=== PATIENT | female | born 1975 | race American Indian/Alaskan Native ===

== ENCOUNTER 2016-08-01 18:17 | Emergency (ER) | payer SELFPAY ==
[2016-08-01 18:50] LABS: Bilirubin,Urine NEG (Negative); Blood,Urine NEG (Negative); Ketones,Urine TR mg/dL (Negative); Leukocyte Esterase,Urine NEG (Negative); Mucus,Urine FEW /HPF; Nitrite,Urine NEG (Negative); Protein,Urine <15 mg/dL mg/dL (Negative)
[2016-08-01 19:15] LABS: Basophils % (Auto) 0.8 % (0.0-1.8); Eosinophils % (Auto) 3.1 % (0.0-4.3); Mean Corpuscular HGB Conc 29 % (30-34); Mean Corpuscular Volume 74 fl (79-97); Platelet Count 221 K/mm3 (140-440); Red Blood Count 3.67 M/mm3 (3.65-5.03); Red Cell Distribution Width 18.2 % (13.2-15.2); White Blood Count 6.1 K/mm3 (4.5-11.0)
[2016-08-01 19:16] LABS: Hematocrit 27.3 % (30.3-42.9); Mean Corpuscular Hemoglobin 22 pg (28-32)
[2016-08-01 19:28] LABS: Anion Gap 18 mmol/L; BUN/Creatinine Ratio 11.42; Blood Urea Nitrogen 8 mg/dL (7-17); Calcium 9.1 mg/dL (8.4-10.2); Carbon Dioxide 27 mmol/L (22-30); Chloride 100.1 mmol/L (98-107); Glucose 96 mg/dL (65-100); Potassium 4.2 mmol/L (3.6-5.0); Sodium 141 mmol/L (137-145)
--- NOTE | 2016-08-02 01:14 | Emergency Department Report ---
ED General Adult HPI - General Chief complaint: Weakness Stated complaint: LAB WORK Time Seen by Provider: 08/02/16 00:55 Source: patient Mode of arrival: Ambulatory Limitations: No Limitations - History of Present Illness Initial comments: 41-year-old female the past medical history HIV presents to the hospital with anemia and rash 2 years and neck. Patient was sent from [facility] after they obtained blood work today and hemoglobin was 7.0. Patient has a history of iron deficiency anemia and takes one iron tablet daily. She denies shortness of breath, lightheadedness, syncope, melena, or hematochezia. Patient also has a rash to bilateral ears and neck times one week. Similar rash in April when she presented here that cleared up with the ED treatment. No reports of fever. CD4 count greater than 200 and viral load undetectable as per patient. Severity scale (0 -10): 3 - Related Data Home Medications Medication Instructions Recorded Confirmed Last Taken Emtricitab/Rilpivirine/Tenofov 1 each PO DAILY 06/01/15 06/01/15 06/01/15 [Complera Tablet] Previous Rx's Medication Instructions Recorded Last Taken Type Ondansetron [Zofran Odt] 4 mg PO Q8HR PRN #10 tab.rapdis 03/14/16 Unknown Rx Cephalexin [Keflex] 500 mg PO Q12HR #14 cap 08/02/16 Unknown Rx Docusate Sodium [Colace] 100 mg PO BID PRN #20 capsule 08/02/16 Unknown Rx Ferrous Sulfate [Feosol 325 MG tab] 325 mg PO TID #60 tablet 08/02/16 Unknown Rx Hydrocortisone 1% [Hydrocortisone 1 applicatio TP TID #1 tube 08/02/16 Unknown Rx 1% CREAM] Loratadine [Claritin] 10 mg PO DAILY #30 tablet 08/02/16 Unknown Rx Allergies Allergy/AdvReac Type Severity Reaction Status Date / Time No Known Allergies Allergy Verified 03/14/16 17:31 ED Review of Systems ROS: Stated complaint: LAB WORK Other details as noted in HPI Comment: All other systems reviewed and negative Other: Constitutional: No fevers chills Eyes: No eye pain visual changes ENT: Ear rash Neck: Denies pain Respiratory: Denies cough wheezing shortness of breath Cardiovascular: Denies chest pain, palpitations, syncope GI: Denies abdominal pain, nausea, vomiting, diarrhea : Denies dysuria Musculoskeletal: Denies back pain, joint swelling Skin: as pr hpi Neurologic: Denies headache, numbness, weakness Psychiatric: Denies suicidal ideation, hallucinations ED Past Medical Hx - Past Medical History Previous Medical History?: Yes Hx HIV: Yes Additional medical history: Skin rash on ears - Surgical History Past Surgical History?: Yes Additional Surgical History: Exp lap - Social History Smoking Status: Current Every Day Smoker Substance Use Type: Prescribed - Medications Home Medications: Home Medications Medication Instructions Recorded Confirmed Last Taken Type Emtricitab/Rilpivirine/Tenofov 1 each PO DAILY 06/01/15 06/01/15 06/01/15 History [Complera Tablet] Ondansetron [Zofran Odt] 4 mg PO Q8HR PRN #10 tab.rapdis 03/14/16 Unknown Rx Cephalexin [Keflex] 500 mg PO Q12HR #14 cap 08/02/16 Unknown Rx Docusate Sodium [Colace] 100 mg PO BID PRN #20 capsule 08/02/16 Unknown Rx Ferrous Sulfate [Feosol 325 MG tab] 325 mg PO TID #60 tablet 08/02/16 Unknown Rx Hydrocortisone 1% [Hydrocortisone 1 applicatio TP TID #1 tube 08/02/16 Unknown Rx 1% CREAM] Loratadine [Claritin] 10 mg PO DAILY #30 tablet 08/02/16 Unknown Rx ED Physical Exam - General Limitations: No Limitations - Other Other exam information: General: No limitations, patient is alert in no acute distress Head exam: Atraumatic, normocephalic Eyes exam: Normal appearance, pupils equal reactive to light, extraocular movements intact ENT: Moist mucous membrane, normal oropharynx Neck exam: Normal inspection, full range of motion, no meningismus nontender Respiratory exam: Clear to auscultation bilateral, no wheezes, rales, crackles Cardiovascular: Normal rate and rhythm, normal heart sounds Abdomen: Soft, nondistended, and nontender, with normal bowel sounds, no rebound, or guarding Extremity: Full range of motion normal inspection no deformity Back: Normal Inspection, full range of motion, no tenderness Neurologic: Alert, oriented x3, cranial nerves intact, no motor or sensory deficit Psychiatric: normal affect, normal mood Skin: Papular scaly erythematous rash to neck and bilateral years. Mild drainage from ear papules. Tender to palpation. ED Course Vital Signs 08/01/16 08/02/16 08/02/16 18:25 00:40 00:46 Temperature 98.5 F 98.4 F Pulse Rate 84 61 Respiratory 20 18 19 Rate Blood Pressure 116/72 Blood Pressure 114/71 [Left] O2 Sat by Pulse 100 100 100 Oximetry 08/02/16 08/02/16 08/02/16 00:49 00:50 00:55 Temperature 98.4 F Pulse Rate 65 60 Respiratory 15 19 14 Rate Blood Pressure 115/80 Blood Pressure 115/71 [Left] O2 Sat by Pulse 100 100 100 Oximetry 08/02/16 01:00 Temperature Pulse Rate 60 Respiratory 12 Rate Blood Pressure 117/71 Blood Pressure [Left] O2 Sat by Pulse 100 Oximetry - Reevaluation(s) Reevaluation #1: 08/02/16 01:14 Patient stable in the ED ED Medical Decision Making - Lab Data Result diagrams: 08/01/16 18:49 08/01/16 18:49 Lab Results 08/01/16 08/01/16 08/01/16 Range/Units 18:36 18:49 18:49 WBC 6.1 (4.5-11.0) K/mm3 RBC 3.67 (3.65-5.03) M/mm3 Hgb 8.0 L (10.1-14.3) gm/dl Hct 27.3 L (30.3-42.9) % MCV 74 L (79-97) fl MCH 22 L (28-32) pg MCHC 29 L (30-34) % RDW 18.2 H (13.2-15.2) % Plt Count 221 (140-440) K/mm3 Lymph % (Auto) 43.7 H (13.4-35.0) % Mills % (Auto) 8.1 H (0.0-7.3) % Eos % (Auto) 3.1 (0.0-4.3) % Baso % (Auto) 0.8 (0.0-1.8) % Lymph # 2.7 (1.2-5.4) K/mm3 Mills # 0.5 (0.0-0.8) K/mm3 Eos # 0.2 (0.0-0.4) K/mm3 Baso # 0.0 (0.0-0.1) K/mm3 Seg Neutrophils % 44.3 (40.0-70.0) % Seg Neutrophils # 2.7 (1.8-7.7) K/mm3 Sodium (137-145) mmol/L Potassium (3.6-5.0) mmol/L Chloride (98-107) mmol/L Carbon Dioxide (22-30) mmol/L Anion Gap mmol/L BUN (7-17) mg/dL Creatinine (0.7-1.2) mg/dL Estimated GFR ml/min BUN/Creatinine Ratio % Glucose (65-100) mg/dL Calcium (8.4-10.2) mg/dL Urine Color Yellow (Yellow) Urine Turbidity Clear (Clear) Urine pH 5.0 (5.0-7.0) Ur Specific [place] 1.021 (1.003-1.030) Urine Protein <15 mg/dl (Negative) mg/dL Urine Glucose (UA) Neg (Negative) mg/dL Urine Ketones Tr (Negative) mg/dL Urine Blood Neg (Negative) Urine Nitrite Neg (Negative) Urine Bilirubin Neg (Negative) Urine Urobilinogen 2.0 (<2.0) mg/dL Ur Leukocyte Esterase Neg (Negative) Urine WBC (Auto) 1.0 (0.0-6.0) /HPF Urine RBC (Auto) 1.0 (0.0-6.0) /HPF U Epithel Cells (Auto) 4.0 (0-13.0) /HPF Urine Mucus Few /HPF Blood Type O POSITIVE Antibody Screen Negative 08/01/16 Range/Units 18:49 WBC (4.5-11.0) K/mm3 RBC (3.65-5.03) M/mm3 Hgb (10.1-14.3) gm/dl Hct (30.3-42.9) % MCV (79-97) fl MCH (28-32) pg MCHC (30-34) % RDW (13.2-15.2) % Plt Count (140-440) K/mm3 Lymph % (Auto) (13.4-35.0) % Mills % (Auto) (0.0-7.3) % Eos % (Auto) (0.0-4.3) % Baso % (Auto) (0.0-1.8) % Lymph # (1.2-5.4) K/mm3 Mills # (0.0-0.8) K/mm3 Eos # (0.0-0.4) K/mm3 Baso # (0.0-0.1) K/mm3 Seg Neutrophils % (40.0-70.0) % Seg Neutrophils # (1.8-7.7) K/mm3 Sodium 141 (137-145) mmol/L Potassium 4.2 (3.6-5.0) mmol/L Chloride 100.1 (98-107) mmol/L Carbon Dioxide 27 (22-30) mmol/L Anion Gap 18 mmol/L BUN 8 (7-17) mg/dL Creatinine 0.7 (0.7-1.2) mg/dL Estimated GFR > 60 ml/min BUN/Creatinine Ratio 11.42 % Glucose 96 (65-100) mg/dL Calcium 9.1 (8.4-10.2) mg/dL Urine Color (Yellow) Urine Turbidity (Clear) Urine pH (5.0-7.0) Ur Specific [place] (1.003-1.030) Urine Protein (Negative) mg/dL Urine Glucose (UA) (Negative) mg/dL Urine Ketones (Negative) mg/dL Urine Blood (Negative) Urine Nitrite (Negative) Urine Bilirubin (Negative) Urine Urobilinogen (<2.0) mg/dL Ur Leukocyte Esterase (Negative) Urine WBC (Auto) (0.0-6.0) /HPF Urine RBC (Auto) (0.0-6.0) /HPF U Epithel Cells (Auto) (0-13.0) /HPF Urine Mucus /HPF Blood Type Antibody Screen - Medical Decision Making Patient's hemoglobin is active bleeding and history iron deficiency anemia. Patient has microcytic anemia at this time. We will increase his current iron dose and refer to hematology. No significant sx at this time. In April patient was treated with Keflex, hydrocortisone cream and Claritin. We'll repeat this regimen since improved to the dermatitis previously. Dermatology referral will be provided - Differential Diagnosis iron deficiency anemia, GI bleed, dermatitis, fungal infection, cellulitis Critical Care Time: No Critical care attestation.: If time is entered above; I have spent that time in minutes in the direct care of this critically ill patient, excluding procedure time. ED Disposition Clinical Impression: Iron deficiency anemia, Dermatitis, HIV (human immunodeficiency virus infection ) Disposition: DISCHARGED TO HOME OR SELFCARE Is pt being admited?: No Does the pt Need Aspirin: No Condition: Stable Instructions: Iron Deficiency Anemia (ED), Acute Rash (ED) Additional Instructions: I have increased your iron tablets to 3 times a day. This may cause constipation. Take stool softeners and [id number] laxities as needed. You will need very close monitoring of your hemoglobin. If yourr hemoglobin continues to drop you will need a blood transfusion. Return if symptoms worsen as indicated by discharge instructions. Follow-up with your and toe puncher provided. Prescriptions: Cephalexin [Keflex] 500 mg PO Q12HR #14 cap Docusate Sodium [Colace] 100 mg PO BID PRN #20 capsule PRN Reason: Constipation Ferrous Sulfate [Feosol 325 MG tab] 325 mg PO TID #60 tablet Hydrocortisone 1% [Hydrocortisone 1% CREAM] 1 applicatio TP TID #1 tube Loratadine [Claritin] 10 mg PO DAILY #30 tablet Referrals: Reggie Vaz MD [Other] - 3-5 Days (Research Quality Assurance Specialist) ALIYAH MIRAMONTES MD [Staff Physician] - 3-5 Days (Color Paste Mixing Supervisor) Time of Disposition: 01:20
[2016-08-02 01:39] VITALS: BP 108/66
== END 2016-08-02 01:35 | disposition home or self-care (01) ==
LOC: ED 18:17
DX: D50.9 Iron deficiency anemia, unspecified (principal); L30.9 Dermatitis, unspecified; B36.9 Superficial mycosis, unspecified; F17.200 Nicotine dependence, unspecified, uncomplicated; H60.10 Cellulitis of external ear, unspecified ear
CPT/HCPCS: 36415; 80048; 81001; 85025; 86850; 86900; 86901

== ENCOUNTER 2020-08-29 18:56 | Emergency (ER) | payer SELFPAY ==
[2020-08-29 19:44] VITALS: BP 96/61
--- NOTE | 2020-08-29 20:18 | Emergency Department Report ---
ED ENT HPI - General Chief complaint: Earache Stated complaint: LT EAR PAIN/DRAINAGE Source: patient Mode of arrival: Ambulatory Limitations: No Limitations - History of Present Illness Initial comments: 45-year-old -[place]og[place] female presents to the emergency room stating that her left outer ear and ear has been draining for a week. States that his skin warm copious amount of discharge. Denies any foreign object placed in the ear. Denies any trauma to the ear. Patient has a history of of eczema and. She states that wearing the masks loops has irritated her ear in the back of her ear. MD complaint: ear pain Onset/Timin -: days(s) - Related Data Home Medications Medication Instructions Recorded Confirmed Last Taken Emtricita/Rilpivirine/Tenof Df 1 each PO DAILY 06/01/15 06/01/15 06/01/15 [Complera Tablet] Previous Rx's Medication Instructions Recorded Last Taken Type Ondansetron [Zofran Odt] 4 mg PO Q8HR PRN #10 tab.rapdis 03/14/16 Unknown Rx Docusate Sodium [Colace] 100 mg PO BID PRN #20 capsule 08/02/16 Unknown Rx Ferrous Sulfate [Feosol 325 MG tab] 325 mg PO TID #60 tablet 08/02/16 Unknown Rx Hydrocortisone 1% [Hydrocortisone 1 applicatio TP TID #1 tube 08/02/16 Unknown Rx 1% CREAM] Loratadine (Nf) [Claritin (Nf)] 10 mg PO DAILY #30 tablet 08/02/16 Unknown Rx cephALEXin [Keflex] 500 mg PO Q12HR #14 cap 08/02/16 Unknown Rx Clindamycin [Clindamycin CAP] 300 mg PO Q8H 7 Days #21 cap 08/29/20 Unknown Rx Triamcinolone Acetonide 1 applicatio TP BID #60 gram 08/29/20 Unknown Rx [Triamcinolone Acetonide Oint 0.5%] Allergies Allergy/AdvReac Type Severity Reaction Status Date / Time No Known Allergies Allergy Verified 03/14/16 17:31 ED Dental HPI - General Chief complaint: Earache Stated complaint: LT EAR PAIN/DRAINAGE Source: patient Mode of arrival: Ambulatory Limitations: No Limitations - Related Data Home Medications Medication Instructions Recorded Confirmed Last Taken Emtricita/Rilpivirine/Tenof Df 1 each PO DAILY 06/01/15 06/01/15 06/01/15 [Complera Tablet] Previous Rx's Medication Instructions Recorded Last Taken Type Ondansetron [Zofran Odt] 4 mg PO Q8HR PRN #10 tab.rapdis 03/14/16 Unknown Rx Docusate Sodium [Colace] 100 mg PO BID PRN #20 capsule 08/02/16 Unknown Rx Ferrous Sulfate [Feosol 325 MG tab] 325 mg PO TID #60 tablet 08/02/16 Unknown Rx Hydrocortisone 1% [Hydrocortisone 1 applicatio TP TID #1 tube 08/02/16 Unknown Rx 1% CREAM] Loratadine (Nf) [Claritin (Nf)] 10 mg PO DAILY #30 tablet 08/02/16 Unknown Rx cephALEXin [Keflex] 500 mg PO Q12HR #14 cap 08/02/16 Unknown Rx Clindamycin [Clindamycin CAP] 300 mg PO Q8H 7 Days #21 cap 08/29/20 Unknown Rx Triamcinolone Acetonide 1 applicatio TP BID #60 gram 08/29/20 Unknown Rx [Triamcinolone Acetonide Oint 0.5%] Allergies Allergy/AdvReac Type Severity Reaction Status Date / Time No Known Allergies Allergy Verified 03/14/16 17:31 ED Review of Systems ROS: Stated complaint: LT EAR PAIN/DRAINAGE Other details as noted in HPI Comment: All other systems reviewed and negative ED Past Medical Hx - Past Medical History Previous Medical History?: Yes Hx HIV: Yes Additional medical history: Skin rash on ears - Surgical History Past Surgical History?: Yes Additional Surgical History: Exp lap - Social History Smoking Status: Current Every Day Smoker Substance Use Type: None - Medications Home Medications: Home Medications Medication Instructions Recorded Confirmed Last Taken Type Emtricita/Rilpivirine/Tenof Df 1 each PO DAILY 06/01/15 06/01/15 06/01/15 History [Complera Tablet] Ondansetron [Zofran Odt] 4 mg PO Q8HR PRN #10 tab.rapdis 03/14/16 Unknown Rx Docusate Sodium [Colace] 100 mg PO BID PRN #20 capsule 08/02/16 Unknown Rx Ferrous Sulfate [Feosol 325 MG tab] 325 mg PO TID #60 tablet 08/02/16 Unknown Rx Hydrocortisone 1% [Hydrocortisone 1 applicatio TP TID #1 tube 08/02/16 Unknown Rx 1% CREAM] Loratadine (Nf) [Claritin (Nf)] 10 mg PO DAILY #30 tablet 08/02/16 Unknown Rx cephALEXin [Keflex] 500 mg PO Q12HR #14 cap 08/02/16 Unknown Rx Clindamycin [Clindamycin CAP] 300 mg PO Q8H 7 Days #21 cap 08/29/20 Unknown Rx Triamcinolone Acetonide 1 applicatio TP BID #60 gram 08/29/20 Unknown Rx [Triamcinolone Acetonide Oint 0.5%] ED Physical Exam - General Limitations: No Limitations General appearance: alert, in no apparent distress - Head Head exam: Present: atraumatic, normocephalic - Eye Eye exam: Present: normal appearance - ENT ENT exam: Present: mucous membranes moist, TM's normal bilaterally. Absent: normal external ear exam (Pea swollen drainage tenderness) - Neck Neck exam: Present: normal inspection, full ROM - Respiratory Respiratory exam: Absent: accessory muscle use - Cardiovascular Cardiovascular Exam: Present: regular rate - Neurological Exam Neurological exam: Present: alert, oriented X3, normal gait - Psychiatric Psychiatric exam: Present: normal affect, normal mood ED Course Vital Signs 08/29/20 19:37 Temperature 98.7 F Pulse Rate 76 Respiratory 18 Rate Blood Pressure 96/61 O2 Sat by Pulse 99 Oximetry ED Medical Decision Making - Medical Decision Making 45-year-old -[place]og[place] female presents to the emergency room stating that her left outer ear and ear has been draining for a week. States that his skin warm copious amount of discharge. Denies any foreign object placed in the ear. Denies any trauma to the ear. Patient has a history of of eczema and. She states that wearing the masks loops has irritated her ear in the back of her ear. Patient will be placed on clindamycin and triamcinolone cream. Discussed with patient to follow-up with her primary care provider. Critical care attestation.: If time is entered above; I have spent that time in minutes in the direct care of this critically ill patient, excluding procedure time. ED Disposition Clinical Impression: Cellulitis of left external ear, Contact dermatitis and eczema Disposition: - TO HOME OR SELFCARE Is pt being admited?: No Does the pt Need Aspirin: No Condition: Stable Instructions: Cellulitis, Adult, [id number], Contact Dermatitis, [id number] Additional Instructions: Keep wound clean and dry. Apply thin layer of ointment twice a day. Follow-up with your primary care provider. Sure to complete your antibiotics. Prescriptions: Clindamycin [Clindamycin CAP] 300 mg PO Q8H 7 Days #21 cap Triamcinolone Acetonide [Triamcinolone Acetonide Oint 0.5%] 1 applicatio TP BID #60 gram Referrals: [facility] [Provider Group] - 3-5 Days
== END 2020-08-29 21:08 | disposition home or self-care (01) ==
LOC: ED 18:56
DX: L25.9 Unspecified contact dermatitis, unspecified cause (principal); H60.12 Cellulitis of left external ear; F17.200 Nicotine dependence, unspecified, uncomplicated; Z21 Asymptomatic human immunodeficiency virus [HIV] infection status; Z79.899 Other long term (current) drug therapy; Z98.890 Other specified postprocedural states
CPT/HCPCS: 99282

== ENCOUNTER 2020-09-04 08:12 | Outpatient (CLI) | payer OTHER ==
--- NOTE | 2020-09-04 09:05 | XRay Report ---
LEFT KNEE 2 VIEWS INDICATION / CLINICAL INFORMATION: LEFT KNEE PAIN COMPARISON: None available. FINDINGS: BONES / JOINT(S): No acute fracture or subluxation. Mild DJD greatest at the patellofemoral joint. SOFT TISSUES: Vascular calcification. ADDITIONAL FINDINGS: None. Signer Name: Naga Taylor MD Signed: 09/04/2020 9:01 AM Workstation Name: [employer]
== END 2020-09-04 08:13 | disposition home or self-care (01) ==
LOC: XRAY 08:12
PROVIDERS: ATTEND Internal Medicine
DX: M17.12 Unilateral primary osteoarthritis, left knee (principal); I10 Essential (primary) hypertension; F32.9 Major depressive disorder, single episode, unspecified; N83.209 Unspecified ovarian cyst, unspecified side

== ENCOUNTER 2020-10-12 14:05 | Emergency (ER) | payer SELFPAY ==
[2020-10-12 15:38] VITALS: BP 101/57
--- NOTE | 2020-10-12 16:27 | Event Note ---
I evaluated Ms. Lowry. She has a history of HIV not compliant with ART for over 1 year. She has a disseminated rash on exam. She has a vesicular rash head to toe. Patient appears nontoxic. Differential diagnosis includes CMV versus VZV. I agree with recommendations of acyclovir. Also recommended restarting Complera treatment. Patient referred to infectious disease doctor.
--- NOTE | 2020-10-12 16:28 | Emergency Department Report ---
ED Rash HPI - HPI Chief Complaint: Skin Rash Stated Complaint: RASH ON BODY/SOB Rash Symptoms: Yes Itching, No Facial Swelling, No Tongue/Oral Swelling, No Breathing Difficulties, No Choking Sensation, No Wheezing/Dyspnea, No Peeling, No Blistering, No Fever, No Lightheaded, No Malaise, No Myalgias Severity: moderate Other History: 89-[id number]-pfb-year-old compromised -[place] female presents with a generalized rash that is pruritic in nature. Patient states that the rash has worsened today. She states it itches and uncomfortable. She denies any true pain. States she has not been on her HIV medications for over a year. Patient denies any fever chills no nausea no vomiting. ED Review of Systems ROS: Stated complaint: RASH ON BODY/SOB Other details as noted in HPI Comment: All other systems reviewed and negative ED Past Medical Hx - Past Medical History Previous Medical History?: Yes Hx HIV: Yes Additional medical history: Skin rash on ears - Surgical History Additional Surgical History: Exp lap - Social History Smoking Status: Current Every Day Smoker Substance Use Type: None - Medications Home Medications: Home Medications Medication Instructions Recorded Confirmed Last Taken Type Emtricita/Rilpivirine/Tenof Df 1 each PO DAILY 06/01/15 06/01/15 06/01/15 Hi story [Complera Tablet] Ondansetron [Zofran Odt] 4 mg PO Q8HR PRN #10 tab.rapdis 03/14/16 Unknown Rx Docusate Sodium [Colace] 100 mg PO BID PRN #20 capsule 08/02/16 Unknown Rx Ferrous Sulfate [Feosol 325 MG tab] 325 mg PO TID #60 tablet 08/02/16 Unknown Rx Hydrocortisone 1% [Hydrocortisone 1 applicatio TP TID #1 tube 08/02/16 Unknown Rx 1% CREAM] Loratadine (Nf) [Claritin (Nf)] 10 mg PO DAILY #30 tablet 08/02/16 Unknown Rx cephALEXin [Keflex] 500 mg PO Q12HR #14 cap 08/02/16 Unknown Rx Clindamycin [Clindamycin CAP] 300 mg PO Q8H 7 Days #21 cap 08/29/20 Unknown Rx Triamcinolone Acetonide 1 applicatio TP BID #60 gram 08/29/20 Unknown Rx [Triamcinolone Acetonide Oint 0.5%] Emtricita/Rilpivirine/Tenof Df 1 each PO DAILY #90 tablet 10/12/20 Unknown Rx [Complera Tablet] Valganciclovir HCl 900 mg PO Q12H 10 Days #40 tablet 10/12/20 Unknown Rx Rash Exam - Exam General: Vital signs noted. No distress. Alert and acting appropriately. HEENT: No Periorbital Edema, No Conjuctival Injection, No Chemosis, No Perioral Edema, No Tongue Edema, No Uvular Edema, No Compromised Airway, No Drooling Lungs: Yes Good Air Exchange (Normal Breath Sounds), No Wheezes, No Ronchi, No Stridor, No Cough, No Labored Respirations, No Retractions, No Use of Accessory Muscles, No Other Abnormal Lung Sounds Heart: Yes Regular, No Murmur Skin: Yes Erythema, Yes Other (Grouped vesicles as well as disseminatedlesions with pin hole) Other: Positive: Abdomen Normal, Neurologic Normal, Musculoskeletal Normal ED Course Vital Signs 10/12/20 15:37 Temperature 98.4 F Pulse Rate 70 Respiratory 18 Rate Blood Pressure 101/57 [Right] O2 Sat by Pulse 99 Oximetry ED Medical Decision Making - Medical Decision Making 89-[id number]-year-old compromised -[place] female presents with a generalized rash that is pruritic in nature. Patient states that the rash has worsened today. She states it itches and uncomfortable. She denies any true pain. States she has not been on her HIV medications for over a year. Patient denies any fever chills no nausea no vomiting. 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 Dr. Nannette Uribe, ER attending came to evaluate patient and agrees with assessment and plan. Patient will be placed on Complera for HIV medication for 90 days and a referral to infectious disease. Patient also was placed on valganciclovir 900 mg twice a day for 10 days. Discussed with patient this rash can be contagious. Critical care attestation.: If time is entered above; I have spent that time in minutes in the direct care of this critically ill patient, excluding procedure time. 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 I am referring you to infectious disease. Prescriptions: Emtricita/Rilpivirine/Tenof Df [Complera Tablet] 1 each PO DAILY #90 tablet Valganciclovir HCl 900 mg PO Q12H 10 Days #40 tablet Referrals: RAVINDRA GASCA MD [Staff Physician] - 3-5 Days TERENCE GAN MD [Staff Physician] - 3-5 Days
== END 2020-10-12 16:35 | disposition home or self-care (01) ==
LOC: ED 14:05
DX: B20 Human immunodeficiency virus [HIV] disease (principal); B00.9 Herpesviral infection, unspecified; F17.200 Nicotine dependence, unspecified, uncomplicated; Z79.899 Other long term (current) drug therapy; Z98.890 Other specified postprocedural states
CPT/HCPCS: 99281

== ENCOUNTER 2020-10-19 17:39 | Emergency (ER) | payer SELFPAY ==
[2020-10-19 18:35] VITALS: BP 131/72
--- NOTE | 2020-10-19 19:04 | Emergency Department Report ---
ED General Adult HPI - General Chief complaint: Skin Rash Stated complaint: RASH Source: patient Mode of arrival: Ambulatory Limitations: No Limitations - History of Present Illness Initial comments: Patient is a 45-year-old -Citizen Of [place] female with a history of HIV and noncompliant with ARV medications and chronic eczema presents to the ED with worsening persistent diffuse itchy ulcerated painful erythematous maculopapular rashes with purulent discharge for the last 2 weeks, worse in the last 4 days. 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 Patient states that she took this medication with no relief. Patient states that she has not been able to sleep because of worsening itchy painful rashes, and that these have worsened especially in the flexural areas of her upper and lower extremities relief. Patient denies fever, chills, nausea, vomiting, dizziness, syncope, cough, sore throat, nasal and sinus congestion, wheezing, abdominal pain, dysuria, urinary frequency and urgency and hemoptysis. MD Complaint: Itchy painful rashes diffusely -: Sudden Location: neck, abdomen, upper extremity, lower extremity Radiation: non-radiation Severity scale (0 -10): 6 Quality: aching Consistency: constant Improves with: none Worsens with: other (scratching) Associated Symptoms: denies other symptoms, rash. denies: confusion, cough, diaphoresis, fever/chills, headaches, loss of appetite, malaise, shortness of breath, syncope, weakness Treatments Prior to Arrival: none - Related Data Home Medications Medication Instructions Recorded Confirmed Last Taken Emtricita/Rilpivirine/Tenof Df 1 each PO DAILY 06/01/15 06/01/15 06/01/15 [Complera Tablet] Previous Rx's Medication Instructions Recorded Last Taken Type Ondansetron [Zofran Odt] 4 mg PO Q8HR PRN #10 tab.rapdis 03/14/16 Unknown Rx Docusate Sodium [Colace] 100 mg PO BID PRN #20 capsule 08/02/16 Unknown Rx Ferrous Sulfate [Feosol 325 MG tab] 325 mg PO TID #60 tablet 08/02/16 Unknown Rx Hydrocortisone 1% [Hydrocortisone 1 applicatio TP TID #1 tube 08/02/16 Unknown Rx 1% CREAM] Loratadine (Nf) [Claritin (Nf)] 10 mg PO DAILY #30 tablet 08/02/16 Unknown Rx cephALEXin [Keflex] 500 mg PO Q12HR #14 cap 08/02/16 Unknown Rx Clindamycin [Clindamycin CAP] 300 mg PO Q8H 7 Days #21 cap 08/29/20 Unknown Rx Emtricita/Rilpivirine/Tenof Df 1 each PO DAILY #90 tablet 10/12/20 Unknown Rx [Complera Tablet] Valganciclovir HCl 900 mg PO Q12H 10 Days #40 tablet 10/12/20 Unknown Rx Valacyclovir HCl [Valtrex] 1,000 mg PO BID #20 tablet 10/13/20 Unknown Rx Sulfamethoxazole/Trimethoprim 1 each PO Q12H #20 tablet 10/19/20 Unknown Rx [Bactrim DS TAB] Terbinafine (Nf) [LamiSIL] 250 mg PO QDAY #14 tablet 10/19/20 Unknown Rx Triamcinolone Acetonide 1 applicatio TP BID #60 gram 10/19/20 Unknown Rx [Triamcinolone Acetonide Oint 0.5%] diphenhydrAMINE [Benadryl CAP] 50 mg PO Q8HR PRN #60 capsule 10/19/20 Unknown Rx predniSONE [Deltasone] 60 mg PO QDAY #15 tab 10/19/20 Unknown Rx Allergies Allergy/AdvReac Type Severity Reaction Status Date / Time No Known Allergies Allergy Verified 03/14/16 17:31 ED Review of Systems ROS: Stated complaint: RASH Other details as noted in HPI Constitutional: denies: chills, fever Eyes: denies: eye pain, eye discharge, vision change ENT: denies: ear pain, throat pain Respiratory: denies: cough, shortness of breath, wheezing Cardiovascular: denies: chest pain, palpitations Endocrine: no symptoms reported Gastrointestinal: denies: abdominal pain, nausea, diarrhea Genitourinary: denies: urgency, dysuria, discharge Musculoskeletal: denies: back pain, joint swelling, arthralgia Skin: rash (diffuse itchy erythematous maculopapular rashes), change in color. denies: lesions, change in hair/nails, pruritus Neurological: denies: headache, weakness, paresthesias, confusion Psychiatric: denies: anxiety, depression Hematological/Lymphatic: denies: easy bleeding, easy bruising ED Past Medical Hx - Past Medical History Previous Medical History?: Yes Hx HIV: Yes Additional medical history: Skin rash on ears - Surgical History Past Surgical History?: Yes Additional Surgical History: Exp lap - Social History Smoking Status: Current Every Day Smoker Substance Use Type: None - Medications Home Medications: Home Medications Medication Instructions Recorded Confirmed Last Taken Type Emtricita/Rilpivirine/Tenof Df 1 each PO DAILY 06/01/15 06/01/15 06/01/15 History [Complera Tablet] Ondansetron [Zofran Odt] 4 mg PO Q8HR PRN #10 tab.rapdis 03/14/16 Unknown Rx Docusate Sodium [Colace] 100 mg PO BID PRN #20 capsule 08/02/16 Unknown Rx Ferrous Sulfate [Feosol 325 MG tab] 325 mg PO TID #60 tablet 08/02/16 Unknown Rx Hydrocortisone 1% [Hydrocortisone 1 applicatio TP TID #1 tube 08/02/16 Unknown Rx 1% CREAM] Loratadine (Nf) [Claritin (Nf)] 10 mg PO DAILY #30 tablet 08/02/16 Unknown Rx cephALEXin [Keflex] 500 mg PO Q12HR #14 cap 08/02/16 Unknown Rx Clindamycin [Clindamycin CAP] 300 mg PO Q8H 7 Days #21 cap 08/29/20 Unknown Rx Emtricita/Rilpivirine/Tenof Df 1 each PO DAILY #90 tablet 10/12/20 Unknown Rx [Complera Tablet] Valganciclovir HCl 900 mg PO Q12H 10 Days #40 tablet 10/12/20 Unknown Rx Valacyclovir HCl [Valtrex] 1,000 mg PO BID #20 tablet 10/13/20 Unknown Rx Sulfamethoxazole/Trimethoprim 1 each PO Q12H #20 tablet 10/19/20 Unknown Rx [Bactrim DS TAB] Terbinafine (Nf) [LamiSIL] 250 mg PO QDAY #14 tablet 10/19/20 Unknown Rx Triamcinolone Acetonide 1 applicatio TP BID #60 gram 10/19/20 Unknown Rx [Triamcinolone Acetonide Oint 0.5%] diphenhydrAMINE [Benadryl CAP] 50 mg PO Q8HR PRN #60 capsule 10/19/20 Unknown Rx predniSONE [Deltasone] 60 mg PO QDAY #15 tab 10/19/20 Unknown Rx ED Physical Exam - General Limitations: No Limitations General appearance: alert, in no apparent distress - Head Head exam: Present: atraumatic, normocephalic, normal inspection - Eye Eye exam: Present: normal appearance, PERRL, EOMI Pupils: Present: normal accommodation - ENT ENT exam: Present: normal exam, normal orophraynx, mucous membranes moist, TM's normal bilaterally, normal external ear exam - Neck Neck exam: Present: normal inspection, full ROM - Respiratory Respiratory exam: Present: normal lung sounds bilaterally. Absent: respiratory distress, wheezes, rales, rhonchi, chest wall tenderness, accessory muscle use, decreased breath sounds, prolonged expiratory, other - Cardiovascular Cardiovascular Exam: Present: regular rate, normal rhythm, normal heart sounds. Absent: systolic murmur, diastolic murmur, rubs, gallop - GI/Abdominal GI/Abdominal exam: Present: soft, normal bowel sounds. Absent: distended, tenderness, guarding, rebound - Extremities Exam Extremities exam: Present: normal inspection, full ROM, normal capillary refill - Back Exam Back exam: Present: normal inspection, full ROM. Absent: tenderness, muscle spasm - Neurological Exam Neurological exam: Present: alert, oriented X3, CN II-XII intact, normal gait, reflexes normal - Psychiatric Psychiatric exam: Present: normal affect, normal mood - Skin Skin exam: Present: warm, dry, intact, rash (Erythematous maculopapular ulcerated tender rashes diffusely with purulent discharge, worse in upper and lower extremities bilaterally.), erythema ED Course Vital Signs 10/19/20 18:34 Temperature 98.7 F Pulse Rate 74 Respiratory 18 Rate Blood Pressure 131/72 [Right] O2 Sat by Pulse 100 Oximetry ED Medical Decision Making - Medical Decision Making This is a 45-year-old -Citizen Of [place] female with a history of chronic eczema and HIV and noncompliant with ARV medications presents to the ED with worsening persistent diffuse itchy ulcerated painful erythematous maculopapular rashes with purulent discharge for the last 2 weeks, worse in the last 4 days. 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 Patient states that she took this medication with no relief. Patient states that she has not been able to sleep because of worsening itchy painful rashes, and that these have worsened especially in the flexural areas of her upper and lower extremities relief. In the ED, patient is alert and oriented x3 and is not in distress. Based on the history and physical exam findings, patient was discharged home on medications for suspected folliculitis, complicating acute irritant dermatitis and tinea corporis. Patient was therefore discharged home and advised to follow-up with her primary care physician and infectious disease physician in 7 to 10 days as previously scheduled. Patient was advised return to the ED immediately if symptoms get worse. - Differential Diagnosis Tinea corporis; folliculitis; irritant dermatitis; allergic reaction Critical care attestation.: If time is entered above; I have spent that time in minutes in the direct care of this critically ill patient, excluding procedure time. ED Disposition Clinical Impression: Acute folliculitis, Tinea corporis, Itching with irritation, Irritant jay matitis Acute allergic reaction Qualifiers: Encounter type: initial encounter Qualified Code(s): T78.40XA - Allergy, unspec ified, initial encounter Disposition: TO HOME OR SELFCARE Is pt being admited?: No Does the pt Need Aspirin: No Condition: Stable Instructions: Pruritus, Body Ringworm, Allergies, Adult, [id number], Contact Dermatitis, [id number], Contact Dermatitis, Folliculitis Additional Instructions: Take medications with food, drink plenty of fluids and follow up with your Primary care physician as previously scheduled. Return to the ED immediately if symptoms get worse. Prescriptions: Sulfamethoxazole/Trimethoprim [Bactrim DS TAB] 1 each PO Q12H #20 tablet diphenhydrAMINE [Benadryl CAP] 50 mg PO Q8HR PRN #60 capsule PRN Reason: Itching predniSONE [Deltasone] 60 mg PO QDAY #15 tab Terbinafine (Nf) [LamiSIL] 250 mg PO QDAY #14 tablet Triamcinolone Acetonide [Triamcinolone Acetonide Oint 0.5%] 1 applicatio TP BID #60 gram Referrals: [facility] [Provider Group] - 3-5 Days [facility] [Outside] - 3-5 Days Time of Disposition: 19:05 Print Language: FAROESE
== END 2020-10-19 19:30 | disposition home or self-care (01) ==
LOC: ED 17:39
DX: L73.9 Follicular disorder, unspecified (principal); B35.4 Tinea corporis; L30.9 Dermatitis, unspecified; F17.200 Nicotine dependence, unspecified, uncomplicated; Z98.890 Other specified postprocedural states; Z79.899 Other long term (current) drug therapy
CPT/HCPCS: 99281

== ENCOUNTER 2021-03-19 14:04 | Emergency (ER) | payer SELFPAY ==
--- NOTE | 2021-03-19 15:13 | Emergency Department Report ---
ED General Adult HPI - General Chief complaint: Skin/Abscess/Foreign Body Stated complaint: LUMP ON LFT BREAST/ BOTH LEGS HURT Time Seen by Provider: 03/19/21 14:18 Source: patient Mode of arrival: Ambulatory Limitations: No Limitations - History of Present Illness Initial comments: 45-year-old -[place] female patient presents with complaints of left breast pain and swelling and bilateral leg pain x2 days. Patient states she was referred to the ED after being seen at an urgent care today for the swelling of her breast. She admits to the pain in her legs starting in her buttocks bilaterally and radiating all the way down into her feet. She states she has some tingling and prickly skin sensations. She denies any history of diabetes or sciatica. Patient reports she last had normal blood work 2 months ago. She also denies any difficulty with ambulation, weakness in her legs, loss of bladder/bowel control, or saddle paresthesias. She states Tylenol is not helping with her symptoms. No fever/chills/sweats, history of cancer, recent long travel, or history of DVT/PE or hormone use per patient - Related Data Home Medications Medication Instructions Recorded Confirmed Last Taken Emtricita/Rilpivirine/Tenof Df 1 each PO DAILY 06/01/15 06/01/15 06/01/15 [Complera Tablet] Previous Rx's Medication Instructions Recorded Last Taken Type Ondansetron [Zofran Odt] 4 mg PO Q8HR PRN #10 tab.rapdis 03/14/16 Unknown Rx Docusate Sodium [Colace] 100 mg PO BID PRN #20 capsule 08/02/16 Unknown Rx Ferrous Sulfate [Feosol 325 MG tab] 325 mg PO TID #60 tablet 08/02/16 Unknown Rx Hydrocortisone 1% [Hydrocortisone 1 applicatio TP TID #1 tube 08/02/16 Unknown Rx 1% CREAM] Loratadine (Nf) [Claritin (Nf)] 10 mg PO DAILY #30 tablet 08/02/16 Unknown Rx cephALEXin [Keflex] 500 mg PO Q12HR #14 cap 08/02/16 Unknown Rx Clindamycin [Clindamycin CAP] 300 mg PO Q8H 7 Days #21 cap 08/29/20 Unknown Rx Emtricita/Rilpivirine/Tenof Df 1 each PO DAILY #90 tablet 10/12/20 Unknown Rx [Complera Tablet] Valganciclovir HCl 900 mg PO Q12H 10 Days #40 tablet 10/12/20 Unknown Rx Valacyclovir HCl [Valtrex] 1,000 mg PO BID #20 tablet 10/13/20 Unknown Rx Sulfamethoxazole/Trimethoprim 1 each PO Q12H #20 tablet 10/19/20 Unknown Rx [Bactrim DS TAB] Terbinafine (Nf) [LamiSIL] 250 mg PO QDAY #14 tablet 10/19/20 Unknown Rx Triamcinolone Acetonide 1 applicatio TP BID #60 gram 10/19/20 Unknown Rx [Triamcinolone Acetonide Oint 0.5%] diphenhydrAMINE [Benadryl CAP] 50 mg PO Q8HR PRN #60 capsule 10/19/20 Unknown Rx predniSONE [Deltasone] 60 mg PO QDAY #15 tab 10/19/20 Unknown Rx Clindamycin [Clindamycin CAP] 300 mg PO Q6H 10 Days #40 capsule 03/19/21 Unknown Rx Naproxen 500 mg PO BID PRN #20 tablet 03/19/21 Unknown Rx methocarbamoL [Methocarbamol] 750 - 1,500 mg PO TID PRN #24 03/19/21 Unknown Rx tablet predniSONE [Deltasone] 20 mg PO BID 3 Days #6 tab 03/19/21 Unknown Rx Allergies Allergy/AdvReac Type Severity Reaction Status Date / Time No Known Allergies Allergy Verified 03/14/16 17:31 ED Review of Systems ROS: Stated complaint: LUMP ON LFT BREAST/ BOTH LEGS HURT Other details as noted in HPI Constitutional: denies: chills, diaphoresis, fever, malaise Respiratory: denies: cough, shortness of breath Cardiovascular: as per HPI. denies: edema Skin: change in color Neurological: paresthesias. denies: headache, numbness, abnormal gait ED Past Medical Hx - Past Medical History Previous Medical History?: Yes Hx HIV: Yes Additional medical history: Skin rash on ears - Surgical History Past Surgical History?: Yes Additional Surgical History: Exp lap - Social History Smoking Status: Current Every Day Smoker Substance Use Type: None - Medications Home Medications: Home Medications Medication Instructions Recorded Confirmed Last Taken Type Emtricita/Rilpivirine/Tenof Df 1 each PO DAILY 1206/01/15 06/01/15 History [Complera Tablet] Ondansetron [Zofran Odt] 4 mg PO Q8HR PRN #10 tab.rapdis 03/14/16 Unknown Rx Docusate Sodium [Colace] 100 mg PO BID PRN #20 capsule 08/02/16 Unknown Rx Ferrous Sulfate [Feosol 325 MG tab] 325 mg PO TID #60 tablet 08/02/16 Unknown Rx Hydrocortisone 1% [Hydrocortisone 1 applicatio TP TID #1 tube 08/02/16 Unknown Rx 1% CREAM] Loratadine (Nf) [Claritin (Nf)] 10 mg PO DAILY #30 tablet 08/02/16 Unknown Rx cephALEXin [Keflex] 500 mg PO Q12HR #14 cap 08/02/16 Unknown Rx Clindamycin [Clindamycin CAP] 300 mg PO Q8H 7 Days #21 cap 08/29/20 Unknown Rx Emtricita/Rilpivirine/Tenof Df 1 each PO DAILY #90 tablet 10/12/20 Unknown Rx [Complera Tablet] Valganciclovir HCl 900 mg PO Q12H 10 Days #40 tablet 10/12/20 Unknown Rx Valacyclovir HCl [Valtrex] 1,000 mg PO BID #20 tablet 10/13/20 Unknown Rx Sulfamethoxazole/Trimethoprim 1 each PO Q12H #20 tablet 10/19/20 Unknown Rx [Bactrim DS TAB] Terbinafine (Nf) [LamiSIL] 250 mg PO QDAY #14 tablet 10/19/20 Unknown Rx Triamcinolone Acetonide 1 applicatio TP BID #60 gram 10/19/20 Unknown Rx [Triamcinolone Acetonide Oint 0.5%] diphenhydrAMINE [Benadryl CAP] 50 mg PO Q8HR PRN #60 capsule 10/19/20 Unknown Rx predniSONE [Deltasone] 60 mg PO QDAY #15 tab 10/19/20 Unknown Rx Clindamycin [Clindamycin CAP] 300 mg PO Q6H 10 Days #40 capsule 03/19/21 Unknown Rx Naproxen 500 mg PO BID PRN #20 tablet 03/19/21 Unknown Rx methocarbamoL [Methocarbamol] 750 - 1,500 mg PO TID PRN #24 03/19/21 Unknown Rx tablet predniSONE [Deltasone] 20 mg PO BID 3 Days #6 tab 03/19/21 Unknown Rx ED Physical Exam - General Limitations: No Limitations General appearance: alert, in no apparent distress - Head Head exam: Present: atraumatic, normocephalic - Eye Eye exam: Present: normal appearance - Respiratory Respiratory exam: Present: normal lung sounds bilaterally. Absent: respiratory distress - Cardiovascular Cardiovascular Exam: Present: regular rate, normal rhythm - Expanded Lower Extremity Exam Left Gait: Positive: observed and normal - Back Exam Back exam: Present: full ROM - Expanded Back Exam Expanded Back exam: Absent: saddle anesthesia Back exam: Sciatic Notch Tenderness: Left, Right, Positive Straight Leg Raise: Left, Right - Neurological Exam Neurological exam: Present: alert, oriented X3, normal gait - Expanded Neurological Exam Expanded Sensory exam: Lower Extremity Light Touch: Normal Motor strength exam: RLE: 4, LLE: 4 - Psychiatric Psychiatric exam: Present: normal affect, normal mood - Skin Skin exam: Present: warm, dry, intact, erythema (Approximately 3 cm round area of erythema and mild induration noted to right lateral nipple without fluctuance or discharge). Absent: rash ED Course Vital Signs 03/19/21 03/19/21 14:13 15:31 Temperature 98.4 F Pulse Rate 75 60 Respiratory 16 16 Rate Blood Pressure 85/46 Blood Pressure 90/51 [Right] O2 Sat by Pulse 99 100 Oximetry ED Medical Decision Making - Medical Decision Making 45-year-old -[place] female patient presents with complaints of left breast pain and swelling and bilateral leg pain x2 days. Patient states she was referred to the ED after being seen at an urgent care today for the swelling of her breast. She admits to the pain in her legs starting in her buttocks bilaterally and radiating all the way down into her feet. She states she has some tingling and prickly skin sensations. She denies any history of diabetes or sciatica. Patient reports she last had normal blood work 2 months ago. She also denies any difficulty with ambulation, weakness in her legs, loss of bladder/bowel control, or saddle paresthesias. She states Tylenol is not helping with her symptoms. No fever/chills/sweats, history of cancer, recent long travel, or history of DVT/PE or hormone use per patient History and physical consistent with mastitis and bilateral sciatica. Prescription for clindamycin given. Will treat sciatica with NSAIDs and muscle relaxers and stretching. Recommend follow-up with PCP within 3 days. Patient's vitals are normal, she is well-appearing, she is stable for discharge home. Discussed presumptive diagnosis, care plan, and signs and symptoms that should prompt immediate return to the ED with patient who verbalizes understanding. Critical care attestation.: If time is entered above; I have spent that time in minutes in the direct care of this critically ill patient, excluding procedure time. ED Disposition Clinical Impression: Bilateral sciatica, Mastitis Disposition: 01 HOME / SELF CARE / HOMELESS Is pt being admited?: No Condition: Stable Instructions: Mastitis, Sciatica Prescriptions: Clindamycin [Clindamycin CAP] 300 mg PO Q6H 10 Days #40 capsule predniSONE [Deltasone] 20 mg PO BID 3 Days #6 tab methocarbamoL [Methocarbamol] 750 - 1,500 mg PO TID PRN #24 tablet PRN Reason: muscle spasm/tightness Naproxen 500 mg PO BID PRN #20 tablet PRN Reason: pain Referrals: [facility] [Provider Group] - 3-5 Days Forms: Work/School Release Form(ED)
[2021-03-19 15:40] VITALS: BP 90/51
== END 2021-03-19 15:31 | disposition home or self-care (01) ==
LOC: ED 14:04
DX: M54.32 Sciatica, left side (principal); M54.31 Sciatica, right side; N61.0 Mastitis without abscess; F17.200 Nicotine dependence, unspecified, uncomplicated
CPT/HCPCS: 99281

== ENCOUNTER 2021-10-01 12:45 | Emergency (ER) | payer SELFPAY ==
[2021-10-01 14:45] VITALS: BP 139/92
[2021-10-01] MEDS ORDERED: methylPREDNISolone Sod Succinate 125 MG/2 ML INJ IM ONE (16:54)
[2021-10-01] MEDS ORDERED: KETOROLAC 10 MG TAB PO ONE (16:54)
[2021-10-01] MEDS ORDERED: ACETAMINOPHEN W/CODEINE 300-30 MG TAB PO ONE (16:54)
--- NOTE | 2021-10-01 16:59 | Emergency Department Report ---
- General Chief complaint: Skin Rash Stated complaint: RASH/DRAINING Time Seen by Provider: 10/01/21 16:40 Source: patient Mode of arrival: Ambulatory Limitations: No Limitations - History of Present Illness Initial comments: 46-year-old black female with a past medical history of hypertension, hyperlipidemia, HIV, and eczema presents to the emergency department for evaluation of worsening rash to bilateral elbows and abdomen. Patient states that she has been using triamcinolone cream to the elbows and abdominal region to treat eczema rash but rash has been getting progressively worse over the last week or so. She states that for the past 2 or 3 days rash has started draining purulent fluid and she has had intermittent fevers at night. She denies abdominal pain, nausea, vomiting, malaise, and weakness. MD complaint: rash -: Gradual (1-06/06 with) Tetanus Up to Date: yes Location: LUE (Crease of elbow), RUE (Crease of elbow) Severity: severe Quality: burning, aching Consistency: constant Associated symptoms: fever Treatments Prior to Arrival: corticosteroid - Related Data Home Medications Medication Instructions Recorded Confirmed Last Taken Emtricita/Rilpivirine/Tenof Df 1 each PO DAILY 06/01/15 06/01/15 06/01/15 [Complera Tablet] Previous Rx's Medication Instructions Recorded Last Taken Type Ondansetron [Zofran Odt] 4 mg PO Q8HR PRN #10 tab.rapdis 03/14/16 Unknown Rx Docusate Sodium [Colace] 100 mg PO BID PRN #20 capsule 08/02/16 Unknown Rx Ferrous Sulfate [Feosol 325 MG tab] 325 mg PO TID #60 tablet 08/02/16 Unknown Rx Hydrocortisone 1% [Hydrocortisone 1 applicatio TP TID #1 tube 08/02/16 Unknown Rx 1% CREAM] Loratadine (Nf) [Claritin (Nf)] 10 mg PO DAILY #30 tablet 08/02/16 Unknown Rx cephALEXin [Keflex] 500 mg PO Q12HR #14 cap 08/02/16 Unknown Rx Clindamycin [Clindamycin CAP] 300 mg PO Q8H 7 Days #21 cap 08/29/20 Unknown Rx Emtricita/Rilpivirine/Tenof Df 1 each PO DAILY #90 tablet 10/12/20 Unknown Rx [Complera Tablet] Valganciclovir HCl 900 mg PO Q12H 10 Days #40 tablet 10/12/20 Unknown Rx Valacyclovir HCl [Valtrex] 1,000 mg PO BID #20 tablet 10/13/20 Unknown Rx Sulfamethoxazole/Trimethoprim 1 each PO Q12H #20 tablet 10/19/20 Unknown Rx [Bactrim DS TAB] Terbinafine (Nf) [LamiSIL] 250 mg PO QDAY #14 tablet 10/19/20 Unknown Rx Triamcinolone Acetonide 1 applicatio TP BID #60 gram 10/19/20 Unknown Rx [Triamcinolone Acetonide Oint 0.5%] diphenhydrAMINE [Benadryl CAP] 50 mg PO Q8HR PRN #60 capsule 10/19/20 Unknown Rx predniSONE [Deltasone] 60 mg PO QDAY #15 tab 10/19/20 Unknown Rx Clindamycin [Clindamycin CAP] 300 mg PO Q6H 10 Days #40 capsule 03/19/21 Unknown Rx Naproxen 500 mg PO BID PRN #20 tablet 03/19/21 Unknown Rx methocarbamoL [Methocarbamol] 750 - 1,500 mg PO TID PRN #24 03/19/21 Unknown Rx tablet predniSONE [Deltasone] 20 mg PO BID 3 Days #6 tab 03/19/21 Unknown Rx Acetaminophen/Codeine [Tylenol 1 tab PO Q6H PRN #12 tab 10/01/21 Unknown Rx /Codeine # 3 tab] Clindamycin [Clindamycin CAP] 300 mg PO Q6H #40 cap 10/01/21 Unknown Rx Prednisone [predniSONE 10 mg 10 mg PO .TAPER #1 pack 10/01/21 Unknown Rx (6-Day Pack, 21 Tabs)] Allergies Allergy/AdvReac Type Severity Reaction Status Date / Time No Known Allergies Allergy Verified 03/14/16 17:31 Abscess Boil HPI - HPI Chief Complaint: Skin Rash Stated Complaint: RASH/DRAINING Time Seen by Provider: 10/01/21 16:40 Home Medications: Home Medications Medication Instructions Recorded Confirmed Last Taken Emtricita/Rilpivirine/Tenof Df 1 each PO DAILY 06/01/15 06/01/15 06/01/15 [Complera Tablet] Previous Rx's Medication Instructions Recorded Last Taken Type Ondansetron [Zofran Odt] 4 mg PO Q8HR PRN #10 tab.rapdis 03/14/16 Unknown Rx Docusate Sodium [Colace] 100 mg PO BID PRN #20 capsule 08/02/16 Unknown Rx Ferrous Sulfate [Feosol 325 MG tab] 325 mg PO TID #60 tablet 08/02/16 Unknown Rx Hydrocortisone 1% [Hydrocortisone 1 applicatio TP TID #1 tube 08/02/16 Unknown Rx 1% CREAM] Loratadine (Nf) [Claritin (Nf)] 10 mg PO DAILY #30 tablet 08/02/16 Unknown Rx cephALEXin [Keflex] 500 mg PO Q12HR #14 cap 08/02/16 Unknown Rx Clindamycin [Clindamycin CAP] 300 mg PO Q8H 7 Days #21 cap 08/29/20 Unknown Rx Emtricita/Rilpivirine/Tenof Df 1 each PO DAILY #90 tablet 10/12/20 Unknown Rx [Complera Tablet] Valganciclovir HCl 900 mg PO Q12H 10 Days #40 tablet 10/12/20 Unknown Rx Valacyclovir HCl [Valtrex] 1,000 mg PO BID #20 tablet 10/13/20 Unknown Rx Sulfamethoxazole/Trimethoprim 1 each PO Q12H #20 tablet 10/19/20 Unknown Rx [Bactrim DS TAB] Terbinafine (Nf) [LamiSIL] 250 mg PO QDAY #14 tablet 10/19/20 Unknown Rx Triamcinolone Acetonide 1 applicatio TP BID #60 gram 10/19/20 Unknown Rx [Triamcinolone Acetonide Oint 0.5%] diphenhydrAMINE [Benadryl CAP] 50 mg PO Q8HR PRN #60 capsule 10/19/20 Unknown Rx predniSONE [Deltasone] 60 mg PO QDAY #15 tab 10/19/20 Unknown Rx Clindamycin [Clindamycin CAP] 300 mg PO Q6H 10 Days #40 capsule 03/19/21 Unknown Rx Naproxen 500 mg PO BID PRN #20 tablet 03/19/21 Unknown Rx methocarbamoL [Methocarbamol] 750 - 1,500 mg PO TID PRN #24 03/19/21 Unknown Rx tablet predniSONE [Deltasone] 20 mg PO BID 3 Days #6 tab 03/19/21 Unknown Rx Acetaminophen/Codeine [Tylenol 1 tab PO Q6H PRN #12 tab 10/01/21 Unknown Rx /Codeine # 3 tab] Clindamycin [Clindamycin CAP] 300 mg PO Q6H #40 cap 10/01/21 Unknown Rx Prednisone [predniSONE 10 mg 10 mg PO .TAPER #1 pack 10/01/21 Unknown Rx (6-Day Pack, 21 Tabs)] Allergies/Adverse Reactions: Allergies Allergy/AdvReac Type Severity Reaction Status Date / Time No Known Allergies Allergy Verified 03/14/16 17:31 ED Review of Systems ROS: Stated complaint: RASH/DRAINING Other details as noted in HPI Comment: All other systems reviewed and negative Constitutional: fever. denies: chills, malaise, weakness Respiratory: denies: cough, shortness of breath, SOB with exertion, SOB at rest, wheezing Cardiovascular: denies: chest pain, palpitations, dyspnea on exertion, orthopnea, edema, syncope Gastrointestinal: abdominal pain. denies: nausea, vomiting, diarrhea, hematemesis, melena, hematochezia Genitourinary: denies: urgency, dysuria Musculoskeletal: denies: back pain Skin: rash Neurological: denies: headache, weakness ED Past Medical Hx - Past Medical History Hx HIV: Yes Additional medical history: Skin rash on ears - Surgical History Additional Surgical History: Exp lap - Social History Smoking Status: Current Every Day Smoker Substance Use Type: None - Medications Home Medications: Home Medications Medication Instructions Recorded Confirmed Last Taken Type Emtricita/Rilpivirine/Tenof Df 1 each PO DAILY 06/01/15 06/01/15 06/01/15 History [Complera Tablet] Ondansetron [Zofran Odt] 4 mg PO Q8HR PRN #10 tab.rapdis 03/14/16 Unknown Rx Docusate Sodium [Colace] 100 mg PO BID PRN #20 capsule 08/02/16 Unknown Rx Ferrous Sulfate [Feosol 325 MG tab] 325 mg PO TID #60 tablet 08/02/16 Unknown Rx Hydrocortisone 1% [Hydrocortisone 1 applicatio TP TID #1 tube 08/02/16 Unknown Rx 1% CREAM] Loratadine (Nf) [Claritin (Nf)] 10 mg PO DAILY #30 tablet 08/02/16 Unknown Rx cephALEXin [Keflex] 500 mg PO Q12HR #14 cap 08/02/16 Unknown Rx Clindamycin [Clindamycin CAP] 300 mg PO Q8H 7 Days #21 cap 08/29/20 Unknown Rx Emtricita/Rilpivirine/Tenof Df 1 each PO DAILY #90 tablet 10/12/20 Unknown Rx [Complera Tablet] Valganciclovir HCl 900 mg PO Q12H 10 Days #40 tablet 10/12/20 Unknown Rx Valacyclovir HCl [Valtrex] 1,000 mg PO BID #20 tablet 10/13/20 Unknown Rx Sulfamethoxazole/Trimethoprim 1 each PO Q12H #20 tablet 10/19/20 Unknown Rx [Bactrim DS TAB] Terbinafine (Nf) [LamiSIL] 250 mg PO QDAY #14 tablet 10/19/20 Unknown Rx Triamcinolone Acetonide 1 applicatio TP BID #60 gram 10/19/20 Unknown Rx [Triamcinolone Acetonide Oint 0.5%] diphenhydrAMINE [Benadryl CAP] 50 mg PO Q8HR PRN #60 capsule 10/19/20 Unknown Rx predniSONE [Deltasone] 60 mg PO QDAY #15 tab 10/19/20 Unknown Rx Clindamycin [Clindamycin CAP] 300 mg PO Q6H 10 Days #40 capsule 03/19/21 Unknown Rx Naproxen 500 mg PO BID PRN #20 tablet 03/19/21 Unknown Rx methocarbamoL [Methocarbamol] 750 - 1,500 mg PO TID PRN #24 03/19/21 Unknown Rx tablet predniSONE [Deltasone] 20 mg PO BID 3 Days #6 tab 03/19/21 Unknown Rx Acetaminophen/Codeine [Tylenol 1 tab PO Q6H PRN #12 tab 10/01/21 Unknown Rx /Codeine # 3 tab] Clindamycin [Clindamycin CAP] 300 mg PO Q6H #40 cap 10/01/21 Unknown Rx Prednisone [predniSONE 10 mg 10 mg PO .TAPER #1 pack 10/01/21 Unknown Rx (6-Day Pack, 21 Tabs)] ED Physical Exam - General Limitations: No Limitations General appearance: alert, in no apparent distress - Head Head exam: Present: atraumatic, normocephalic - Eye Eye exam: Present: normal appearance. Absent: conjunctival injection - Neck Neck exam: Present: other (Scaly pruritic discolored rash noted over entire neck) - Respiratory Respiratory exam: Absent: respiratory distress - Cardiovascular Cardiovascular Exam: Present: regular rate - GI/Abdominal GI/Abdominal exam: Present: soft, tenderness, other (Scaly pruritic discolored rash noted to umbilical area with purulent drainage noted) - Extremities Exam Extremities exam: Present: normal capillary refill. Absent: normal inspection - Expanded Upper Extremity Exam Left Elbow exam: Present: tenderness, swelling, erythema, other (Pruritic dry scaly rash noted to area with purulent drainag drainage noted along with erythema to all edges.) Vascular: Present: normal capillary refill, radial pulse. Absent: vascular compromise, Pallo, pulse deficit radial art Right Elbow exam: Present: tenderness, swelling, erythema, other (Pruritic dry scaly rash noted to area with purulent drainag drainage noted along with erythema to all edges.). Absent: normal inspection Vascular: Present: normal capillary refill, radial pulse. Absent: vascular compromise, Pallo, pulse deficit radial art - Back Exam Back exam: Present: normal inspection. Absent: tenderness - Neurological Exam Neurological exam: Present: alert, oriented X3, normal gait - Psychiatric Psychiatric exam: Present: normal affect, normal mood - Skin Skin exam: Present: warm, dry, rash (To neck, bilateral elbows, and abdominal area). Absent: intact ED Course Vital Signs 10/01/21 14:44 Temperature 98.2 F Pulse Rate 68 Respiratory 18 Rate Blood Pressure 139/92 O2 Sat by Pulse 100 Oximetry ED Medical Decision Making - Medical Decision Making 46-year-old black female with a past medical history of hypertension, hyperlipidemia, HIV, and eczema presents to the emergency department for evaluation of worsening rash to bilateral elbows and abdomen. Patient states that she has been using triamcinolone cream to the elbows and abdominal region to treat eczema rash but rash has been getting progressively worse over the last week or so. She states that for the past 2 or 3 days rash has started draining purulent fluid and she has had intermittent fevers at night. She denies abdominal pain, nausea, vomiting, malaise, and weakness. Exam consistent with severe eczema rash to neck, bilateral elbows, and abdominal area. Rash to elbows and abdomen noted to have purulent drainage and erythema around it higher rash. Area noted to be warm to touch. Patient will be treated for cellulitis and eczema. She received one-time dose of Solu-Medrol IM in the ED along with Tylenol 3 and Toradol. She will be discharged home with 10-day course of clindamycin to take 4 times a day along with Medrol Dosepak and Tylenol 3 as needed for pain. She is advised to take medications as prescribed and follow-up with primary care provider or infectious disease if no improvement or worsening symptoms. She verbalized understanding And agreement with plan of care. Critical care attestation.: If time is entered above; I have spent that time in minutes in the direct care of this critically ill patient, excluding procedure time. ED Disposition Clinical Impression: Cellulitis Qualifiers: Site of cellulitis: extremity Site of cellulitis of extremity: upper extremity Laterality: unspecified laterality Qualified Code(s): L03.119 - Cellulitis of unspecified part of limb Disposition: HOME / SELF CARE / HOMELESS Is pt being admited?: No Does the pt Need Aspirin: No Condition: Stable Instructions: Cellulitis, Adult, [id number] Additional Instructions: Take medications as prescribed. Follow-up with primary care provider if no improvement or worsening symptoms. Return to the emergency department as needed. Prescriptions: Clindamycin [Clindamycin CAP] 300 mg PO Q6H #40 cap Prednisone [predniSONE 10 mg (6-Day Pack, 21 Tabs)] 10 mg PO .TAPER #1 pack Acetaminophen/Codeine [Tylenol /Codeine # 3 tab] 1 tab PO Q6H PRN #12 tab PRN Reason: pain Referrals: WAYNE WHITNEY MD [Staff Physician] - 3-5 Days TERENCE GAN MD [Staff Physician] - 3-5 Days Forms: Work/School Release Form(ED) Time of Disposition: 16:59
== END 2021-10-01 20:21 | disposition home or self-care (01) ==
LOC: ED 12:45
DX: L03.90 Cellulitis, unspecified (principal); F17.200 Nicotine dependence, unspecified, uncomplicated
CPT/HCPCS: 96372; 99282; J2930